=== PATIENT | male | born 1990 | race Caucasian/White ===

== ENCOUNTER 2020-03-10 03:57 | Emergency (ER) | payer MEDICAID, OTHER ==
[~2020-03-10] VITALS: Ht 177.8 cm; Wt 110.0 kg
[2020-03-10] MEDS ORDERED: METHYLPREDNISOLONE SOD SUCC 125 MG/2 ML VIAL IV STA (04:39)
[2020-03-10] MEDS ORDERED: IPRATROPIUM BROMIDE (0.02%) 0.5MG/2.5ML NEB HHN STA (04:39)
[2020-03-10] MEDS: ALBUTEROL (0.083%) 2.5MG/3ML NEB HHN SCH (04:56)
[2020-03-10 05:53] LABS: CHLORIDE 107 mEq/L (98-107)
[2020-03-10 05:54] LABS: EOSINOPHILS % 10.7 % (0.0-5.0); HEMATOCRIT. 44.8 % (42.0-52.0); HEMOGLOBIN. 15.2 g/dL (14.0-18.0); MEAN CORPUSCULAR HEMOGLOBIN 29.6 pg (28.0-32.0); MEAN CORPUSCULAR VOLUME 87.1 fL (80.0-94.0); MEAN PLATELET VOLUME 9.5 fl (7.4-10.4); NEUTROPHILS % 51.3 % (40.0-76.0); PLATELET 218 x1000/uL (130-400); RED BLOOD CELL COUNT 5.15 mill/uL (4.7-6.1); RED CELL DISTRIBUTION WIDTH 13.2 % (11.6-14.6)
[2020-03-10 07:13] VITALS: BP 163/93
== END 2020-03-10 07:17 | disposition home or self-care (01) ==
LOC: ER 03:57
DX: J45.902 Unspecified asthma with status asthmaticus (principal); R03.0 Elevated blood-pressure reading, without diagnosis of hypertension
CPT/HCPCS: 36415; 71045; 80053; 83605; 83880; 84484; 85025; 93005; 96374; 99285; J2930; Z7610

== ENCOUNTER 2023-04-27 05:39 | Inpatient (IN) | payer SELFPAY ==
[2023-04-27] VITALS (8 sets, daily range): BP systolic 124–156; BP diastolic 70–78; PULSE 80–153; RESP 19–26; TEMP 97.2–99.6; O2SAT 88–97
[~2023-04-27] VITALS: Ht 172.7 cm; Wt 103.0 kg
[2023-04-27] MEDS ORDERED: IPRATROPIUM BROMIDE (0.02%) 0.5MG/2.5ML NEB HHN STA ×3 (06:36→13:39)
[2023-04-27] MEDS ORDERED: ALBUTEROL (0.083%) 2.5MG/3ML NEB HHN STA ×3 (06:36→13:39)
[2023-04-27] MEDS ORDERED: PREDNISONE 20MG TABLET PO STA (06:36)
[2023-04-27] MEDS ORDERED: PREDNISONE 20MG TABLET PO NR (08:30)
[2023-04-27] MEDS: IPRATROPIUM BROMIDE (0.02%) 0.5MG/2.5ML NEB HHN NR ×2 (08:44→16:32)
[2023-04-27] MEDS: ALBUTEROL (0.083%) 2.5MG/3ML NEB HHN NR ×2 (08:45→16:33)
[2023-04-27 11:55] LABS: HEMATOCRIT. 46.6 % (42.0-52.0); HEMOGLOBIN. 15.8 g/dL (14.0-18.0); MEAN CORPUSCULAR HEMOGLOBIN 29.8 pg (28.0-32.0); MEAN CORPUSCULAR HGB CONC 33.9 g/dL (31.0-37.0); MEAN CORPUSCULAR VOLUME 87.9 fL (80.0-94.0); MEAN PLATELET VOLUME 8.2 fl (7.4-10.4); PLATELET 327 x1000/uL (130-400); WHITE BLOOD COUNT 16.3 x1000/uL (4.5-11.0)
[2023-04-27 12:09] LABS: DIFFERENTIAL COMMENT 1
[2023-04-27] MEDS ORDERED: ACETAMINOPHEN 325MG TABLET PO ONE (13:00)
[2023-04-27 13:09] LABS: ALANINE AMINOTRANSFERASE 20 IU/L (10-49); ALBUMIN 4.7 g/dL (3.2-4.8); ASPARTATE AMINOTRANSFERASE 18 IU/L (<34); BILIRUBIN TOTAL 0.6 mg/dL (0.1-1.0); CALCIUM 9.7 mg/dL (8.7-10.4); CARBON DIOXIDE 28 mEq/L (21-32); CHLORIDE 104 mEq/L (98-107); CREATININE 0.8 mg/dL (0.6-1.3); GLUCOSE 128 mg/dL (70-105); POTASSIUM 4.1 mEq/L (3.5-5.1); PROTEIN TOTAL 7.7 g/dL (6.0-8.3); SODIUM 138 mEq/L (136-145); TROPONIN I HIGH SENSITIVITY 4 ng/L (3.0-53); UREA NITROGEN BLOOD 12 mg/dL (9-23)
[2023-04-27 13:24] LABS: PLATELET ESTIMATE NORMAL
[2023-04-27] MEDS ORDERED: MAGNESIUM 2 G PREMIX 50 ML IV ONE (13:45)
[2023-04-27] MEDS ORDERED: IPRATROPIUM/ALBUTEROL 0.5-3(2.5)MG/3ML NEB HHN PRN ×2 (16:45→18:00)
[2023-04-27] MEDS ORDERED: ACETAMINOPHEN 325MG TABLET PO PRN (18:00)
[2023-04-27] MEDS ORDERED: DOCUSATE SODIUM 100MG CAPSULE PO PRN (18:00)
[2023-04-27] MEDS ORDERED: ONDANSETRON HCL 4MG/2ML INJ IV PRN (18:00)
[2023-04-27] MEDS ORDERED: CLONIDINE 0.1MG TABLET PO PRN (18:00)
[2023-04-27] MEDS: METHYLPREDNISOLONE SOD SUCC 40MG/ML (ACT-O-VIAL) IV SCH ×2 (20:17→23:00)
[2023-04-27] MEDS: IPRATROPIUM/ALBUTEROL 0.5-3(2.5)MG/3ML NEB HHN SCH (20:18)
[2023-04-27] MEDS: ACETAMINOPHEN 325MG TABLET PO PRN (20:21)
[2023-04-28] VITALS (11 sets, daily range): BP systolic 108–124; BP diastolic 57–81; PULSE 64–122; RESP 18–24; TEMP 97.3–100.6; O2SAT 95–97
[2023-04-28] MEDS: IPRATROPIUM/ALBUTEROL 0.5-3(2.5)MG/3ML NEB HHN SCH ×5 (02:27→20:53)
[2023-04-28] MEDS: METHYLPREDNISOLONE SOD SUCC 40MG/ML (ACT-O-VIAL) IV SCH ×3 (05:08→23:02)
[2023-04-28 07:01] LABS: CALCIUM 9.1 mg/dL (8.7-10.4); CARBON DIOXIDE 28 mEq/L (21-32); CHLORIDE 102 mEq/L (98-107); CREATININE 0.8 mg/dL (0.6-1.3); GLUCOSE 116 mg/dL (70-105); SODIUM 137 mEq/L (136-145); UREA NITROGEN BLOOD 13 mg/dL (9-23)
[2023-04-28 07:10] LABS: HEMATOCRIT. 43.1 % (42.0-52.0); HEMOGLOBIN. 14.6 g/dL (14.0-18.0); MEAN CORPUSCULAR HGB CONC 33.8 g/dL (31.0-37.0); MEAN CORPUSCULAR VOLUME 88.7 fL (80.0-94.0); MEAN PLATELET VOLUME 8.7 fl (7.4-10.4); PLATELET 338 x1000/uL (130-400); RED BLOOD CELL COUNT 4.85 mill/uL (4.7-6.1); WHITE BLOOD COUNT 10.7 x1000/uL (4.5-11.0)
[2023-04-28 07:12] LABS: DIFFERENTIAL COMMENT 1
[2023-04-28] MEDS: ACETAMINOPHEN 325MG TABLET PO PRN (17:30)
[2023-04-28 18:21] LABS: PLATELET ESTIMATE NORMAL
[2023-04-29] VITALS (9 sets, daily range): BP systolic 110–130; BP diastolic 46–74; PULSE 64–97; RESP 16–20; TEMP 97.7–98.8; O2SAT 94–98
[2023-04-29] MEDS: IPRATROPIUM/ALBUTEROL 0.5-3(2.5)MG/3ML NEB HHN SCH ×4 (00:56→11:31)
[2023-04-29] MEDS: METHYLPREDNISOLONE SOD SUCC 40MG/ML (ACT-O-VIAL) IV SCH (05:57)
[2023-04-29] MEDS ORDERED: GUAIFENESIN 600MG ER TABLET PO SCH (10:00)
[2023-04-29] MEDS ORDERED: FAMO20TA8 MT (10:01)
[2023-04-29] MEDS ORDERED: ALBU18HF2 IH (10:01)
[2023-04-29] MEDS ORDERED: GUAI600T44 MT (10:01)
[2023-04-29] MEDS ORDERED: P20 MT (10:01)
[2023-04-29] MEDS ORDERED: BENZONATATE 100MG CAPSULE PO PRN (11:45)
== END 2023-04-29 15:58 | disposition home or self-care (01) | DRG 141 ==
LOC: ER 05:41 → 8WST 13:58 → EDBEDREQTM 13:59 → EDBEDREQ 13:59
PROVIDERS: ADMIT Internal Medicine; ATTEND Internal Medicine
DX: J45.21 Mild intermittent asthma with (acute) exacerbation (principal); J96.00 Acute respiratory failure, unspecified whether with hypoxia or hypercapnia; D72.829 Elevated white blood cell count, unspecified; F17.210 Nicotine dependence, cigarettes, uncomplicated; Z79.899 Other long term (current) drug therapy
CPT/HCPCS: 36415; 71045; 80048; 80053; 83880; 84484; 85025; 93005; 94640; 94644; 99291; J2920; J3475; J7512